=== PATIENT | female | born 1990 | race Caucasian/White ===

== ENCOUNTER 2024-11-25 10:12 | Emergency (ER) | payer OTHER ==
[~2024-11-25] VITALS: Ht 160 cm; Wt 81.6 kg
[2024-11-25] MEDS: SODIUM CHLORIDE 0.9% 1000ML 2,000 ML IV STA (10:43)
[2024-11-25] MEDS: MAGNESIUM/ALUMINUM/SIMETHICONE 30 ML UDC PO STA (10:43)
[2024-11-25] MEDS: LIDOCAINE VISC 2% SOLN 15 ML UDC PO STA (10:43)
[2024-11-25] MEDS: BELLADONNA ALK/PHENOBARBITAL 5 ML UDC PO ONE (10:44)
[2024-11-25 10:49] LABS: BASOPHILS % 0.0 % (0.0-1.0); EOSINOPHILS % 0.3 % (0.0-6.0); LYMPHOCYTES % 15.4 % (18.0-39.1); MONOCYTES % 3.5 % (4.4-11.3); NEUTROPHILS % 80.4 % (38.7-80.0); RED CELL DISTRIBUTION WIDTH 13.0 % (11.7-14.4)
[2024-11-25] MEDS: ONDANSETRON HCL INJ 2MG/ML 2ML 2 MG/ML VIAL IV STA (11:15)
[2024-11-25 11:21] LABS: ABG BASE EXCESS -11.0 mmol/L (-2 - 3); ABG HCO3 14 mmol/L (22-26); ABG OXYGEN SATURATION 99.0 % (95-98); ABG PCO2 25 mmHg (35-45); ABG PH 7.36 (7.35-7.45); ABG PO2 133 mmHg (80-105); ABG TCO2 15
[2024-11-25 12:06] LABS: EST GLOMERULAR FILTRATION RATE 71.0 ML/MIN (>=60)
[2024-11-25 12:44] LABS: LEUKOCYTE ESTERASE ,URINE NEGATIVE (NEGATIVE); PROTEIN,URINE DIPSTICK NEGATIVE (NEGATIVE)
[2024-11-25 12:45] LABS: AMPHETAMINES SCREEN,URINE NEGATIVE (NEGATIVE); CANNABINOIDS SCREEN,URINE POSITIVE (NEGATIVE); COCAINE SCREEN,URINE NEGATIVE (NEGATIVE); EPITHELIAL CELLS,URINE FEW /LPF; METHADONE SCREEN, URINE NEGATIVE (NEGATIVE); OPIATES SCREEN,URINE NEGATIVE (NEGATIVE); URINE UROBILINOGEN 0.2 mg/dL (0.2 - 1); WBC,URINE (MAN) 0-5 /HPF (0-5)
[2024-11-25 12:49] LABS: PREGNANCY TEST, URINE NEGATIVE (NEGATIVE)
[2024-11-25] MEDS ORDERED: IOPAMIDOL 370 MG/ML 100 ML INFUS..BTL INJ ONE (12:55)
[2024-11-25] MEDS: ACETAMINOPHEN 325 MG TAB PO STA (13:46)
[2024-11-25] MEDS: FAMOTIDINE 20 MG/2 ML VIAL IV STA (14:24)
[2024-11-25 15:50] LABS: EST GLOMERULAR FILTRATION RATE 98.0 ML/MIN (>=60)
[2024-11-25 16:38] VITALS: PULSE 77; RESP 16; TEMP 98.1
[2024-11-25 16:43] VITALS: BP 138/97; TEMP 98.1; O2SAT 100
== END 2024-11-25 16:46 | disposition home or self-care (01) ==
LOC: ER 10:17
DX: R11.2 Nausea with vomiting, unspecified (principal); R10.13 Epigastric pain; E11.65 Type 2 diabetes mellitus with hyperglycemia; K57.90 Diverticulosis of intestine, part unspecified, without perforation or abscess without bleeding; R16.0 Hepatomegaly, not elsewhere classified
CPT/HCPCS: 36415; 36600; 71045; 74177; 80053; 80307; 81001; 81003; 81025; 82550; 82553; 82805; 82948; 83690; 83880; 84484; 85025; 93005; 99284; J1308; J2405; J7030; Q9967

== ENCOUNTER 2025-01-14 10:39 | Emergency (ER) | payer OTHER ==
[2025-01-14 11:07] LABS: BASOPHILS % 0.1 % (0.0-1.0); EOSINOPHILS % 3.2 % (0.0-6.0); LYMPHOCYTES % 32.9 % (18.0-39.1); MONOCYTES % 3.9 % (4.4-11.3); NEUTROPHILS % 59.1 % (38.7-80.0); RED CELL DISTRIBUTION WIDTH 17.5 % (11.7-14.4)
[2025-01-14 11:14] LABS: AMPHETAMINES SCREEN,URINE NEGATIVE (NEGATIVE); COCAINE SCREEN,URINE NEGATIVE (NEGATIVE); LEUKOCYTE ESTERASE ,URINE NEGATIVE (NEGATIVE); OPIATES SCREEN,URINE NEGATIVE (NEGATIVE); PROTEIN,URINE DIPSTICK NEGATIVE (NEGATIVE)
[2025-01-14 11:15] LABS: CANNABINOIDS SCREEN,URINE POSITIVE (NEGATIVE); METHADONE SCREEN, URINE NEGATIVE (NEGATIVE); URINE UROBILINOGEN 0.2 mg/dL (0.2 - 1)
[2025-01-14 11:24] LABS: EPITHELIAL CELLS,URINE FEW /LPF; WBC,URINE (MAN) 0-5 /HPF (0-5)
[2025-01-14 11:25] LABS: EST GLOMERULAR FILTRATION RATE 66 ML/MIN (>=60)
[2025-01-14 11:26] LABS: INR 0.93
[2025-01-14] MEDS: SODIUM CHLORIDE 0.9% 1000ML 1,000 ML IV STA (11:36)
[2025-01-14] MEDS: CLONIDINE HCL 0.1 MG TAB PO ONE (13:16)
[2025-01-14] MEDS: ENALAPRILAT IV INJ 1.25 MG/ML VIAL IV STA (13:17)
[2025-01-14 13:58] VITALS: PULSE 75; RESP 16
[2025-01-14] MEDS ORDERED: LOSARTAN POTASS25 MG PO (14:22)
[2025-01-14 14:37] VITALS: BP 167/81; PULSE 75; RESP 17; TEMP 98.1; O2SAT 99
== END 2025-01-14 14:39 | disposition home or self-care (01) ==
LOC: ER 10:52
DX: I10 Essential (primary) hypertension (principal); E11.9 Type 2 diabetes mellitus without complications
CPT/HCPCS: 36415; 70450; 71045; 80053; 80307; 81001; 83735; 84484; 84702; 85025; 85610; 85730; 93005; 99284; J7030